=== PATIENT | female | born 1925 ===

== ENCOUNTER 2017-07-13 07:28 | Day surgery (SDC) | payer OTHER ==
[2017-07-13] MEDS ORDERED: Phenylephrine 10 mg/ml Inj ONE (07:36)
[2017-07-13] MEDS ORDERED: Lidocaine 2% Inj (20ml) ONE (07:36)
[2017-07-13] MEDS ORDERED: Verapamil 0 ML ONE (07:36)
[2017-07-13] MEDS ORDERED: Iodixanol 320 MG/ML 100 ML BOTTLE IV ONE (07:37)
[2017-07-13] MEDS ORDERED: Iohexol 350mgl/ml 50 ML ONE (07:37)
[2017-07-13] MEDS ORDERED: HEPARIN SODIUM/NS 2,000 ML IV ONE (07:37)
[2017-07-13] MEDS ORDERED: Nitroglycerin 50mg in D5W 0 MG/0 ML BOTTLE IV ONE (07:37)
[2017-07-13] MEDS ORDERED: Iodixanol 320 MG/ML 200 ML BOTTLE IV ONE (07:37)
[2017-07-13] MEDS ORDERED: Midazolam 2 MG/2 ML VIAL ONE (07:39)
[2017-07-13] MEDS ORDERED: Adenosine 90 mg/30mL IV ONE (07:40)
[2017-07-13] MEDS ORDERED: Sodium Chloride 0.9% 1,000 ML IV STA (12:47)
[2017-07-13] MEDS ORDERED: Sodium Chloride 0.9% 1,000 ML IV SCH (13:00)
[2017-07-13 16:42] VITALS: BP 158/69; PULSE 97; RESP 32; TEMP 98
--- NOTE | 2017-07-13 21:02 | CARDCATH ---
PROCEDURE DATE: 07/13/2017 INDICATIONS: Ms. Hansa Sloan is an 89-year-old female who presented to [facility] with acute onset chest pain, shortness of breath, and ST elevation in the aVR for which she was emergently taken to the cardiac cath laboratory technician at [facility] where she was noted to have ostial LAD 70% to 80% stenosis. She was medically treated and subsequently transferred over to [facility] for intervention of the ostial LAD. PROCEDURE PERFORMED: IVUS-guided intervention of ostial LAD with deployment of 3.5 x 22 Resolute drug-eluting stent, lesion reduction from 76% down to 0%, CAMILLE-3 flow, post-dilatation with a 4.0 x 15 noncompliant balloon, 7-Jordanian left femoral arterial access, Mynx closure device for hemostasis. INTERVENTION PERFORMED: Patient had a 7-Jordanian xb 3.5 guiding catheter engaged to the left femoral arterial access. Prowater wire was used to place in the LAD and a wire was placed in the left circumflex coronary artery. Subsequently the lesion had IVUS interrogation, which showed patient had a 76% obstructive lesion of the ostial LAD. Patient had a predilatation with 3.0 x 20 balloon and then stenting with 3.5 x 22 Resolute drug-eluting stent, and then subsequently postdilatation with a 4.0 x 15 noncompliant balloon. Subsequently post-stent deployment, IVUS was performed which showed good , good stent apposition, and CAMILLE-3 flow. IMPRESSION: Successful revascularization of ostial left anterior descending 75% stenosis, deployment of 3.5 x 22 Resolute drug eluting stent, postdilatation with a 4-0 noncompliant balloon. RECOMMENDATIONS: Dual antiplatelet therapy at least for 6 months. Guideline dietary therapy for CAD. Follow up with Dr. Donovan in 1 to 2 weeks. Rikki Donovan MD
== END 2017-07-13 15:00 | disposition short-term general hospital (02) ==
LOC: CATH 07:28 → CCU 10:10 → CATH 15:00
PROVIDERS: ATTEND Internal Medicine Interventional Cardiology
DX: I25.10 Atherosclerotic heart disease of native coronary artery without angina pectoris (principal); R06.02 Shortness of breath
CPT/HCPCS: 82948; 85175; 87081; 93454; 99152; 99153; C1725 ×2; C1753; C1760; C1769 ×2; C1887; C1894; C9600; J1644 ×2; J2250; J3010; J7030; J7040; Q9967 ×2